=== PATIENT | male | born 1980 | race African-American/Black ===

== ENCOUNTER 2016-07-11 17:41 | Emergency (ER) | payer BC ==
[2016-07-11] MEDS ORDERED: Adacel (T-DAP) 0.5 ML VIAL ONE (17:48)
[2016-07-11] MEDS ORDERED: Lidocaine 1% 20 ML MDV ONE (17:52)
[2016-07-11] MEDS ORDERED: Bacitracin Zinc 1 Packet ONE (18:26)
== END 2016-07-11 18:35 | disposition home or self-care (01) ==
LOC: NAV ERS 17:41
DX: S61.031A Puncture wound without foreign body of right thumb without damage to nail, initial encounter (principal); W51.XXXA Accidental striking against or bumped into by another person, initial encounter
CPT/HCPCS: 10120; 90471; 90715; J2001

== ENCOUNTER 2017-02-12 16:14 | Outpatient (CLI) | payer BC ==
--- NOTE | 2017-02-12 16:51 | RAD ---
LUMBAR SPINE TWO VIEWS: History: Low back pain. FINDINGS/IMPRESSION: There are five lumbar type vertebrae. No fracture, subluxation, or bony destruction is identified. POS: [facility]
== END 2017-02-12 16:15 | disposition home or self-care (01) ==
LOC: NAV RAD 16:14
DX: M54.5 Low back pain (principal)
CPT/HCPCS: 72100

== ENCOUNTER 2019-11-04 22:28 | Emergency (ER) | payer BC, OTHER ==
[2019-11-06 12:15] LABS: SARS-CoV-2 MS2 Positive; SARS-CoV-2 N Gene Negative; SARS-CoV-2 S Gene Negative; SARS-CoV-2 by NAA Not Detected (NotDetected); SARS-CoV-2 orf1ab Negative
== END 2019-11-04 23:15 | disposition home or self-care (01) ==
LOC: NAV ERS 22:28
DX: Z20.828 Contact with and (suspected) exposure to other viral communicable diseases (principal); I10 Essential (primary) hypertension
CPT/HCPCS: 87635; 99283; U0003

== ENCOUNTER 2019-12-24 20:51 | Emergency (ER) | payer BC, OTHER ==
[2019-12-24] MEDS ORDERED: Fluorescein Opthalmic Strip ONE (21:05)
[2019-12-24] MEDS ORDERED: Tetracaine HCl 0.5% Ophth Soln 2 ML Bottle ONE (21:05)
== END 2019-12-24 21:50 | disposition home or self-care (01) ==
LOC: NAV ERS 20:51
DX: T15.02XA Foreign body in cornea, left eye, initial encounter (principal); I10 Essential (primary) hypertension
CPT/HCPCS: 65222